=== PATIENT | female | born 1980 | race Caucasian/White ===

== ENCOUNTER → 2016-09-02 | Outpatient (CLI) | payer BC ==
[2016-09-02 12:10] LABS: Basophils % (A) 0 %; CHCM 33.8; Eosinophils % (A) 0 %; HDW 2.42; HGB 13.4 gm/dL (11.4-16.0); Luc # (Auto) 0.16; Luc % (Auto) 1; Lymphocytes % (A) 16 %; MCH 30.2 pg (25.0-35.0); MCHC 32.8 g/dL (31.0-37.0); MCV 92.2 fL (80.0-100.0); Mean Platelet Volume 7.1; Monocytes # (A) 0.4 k/uL (0-1.0); Monocytes % (A) 3 %; Neutrophils # (A) 10.1 k/uL (1.3-7.7); Neutrophils % (A) 79 %; RBC 4.44 m/uL (3.80-5.40); RDW 12.6 % (11.5-15.5); WBC 12.8 k/uL (3.8-10.6); WBC (Perox) 13.53
== END | disposition home or self-care (01) ==
LOC: LABPAT 11:21
PROVIDERS: ATTEND Orthopaedic Surgery
DX: Z01.812 Encounter for preprocedural laboratory examination (principal)
CPT/HCPCS: 85025

== ENCOUNTER 2016-09-25 07:36 | Day surgery (SDC) | payer BC ==
[2016-09-20 16:09] VITALS: BMI 23.1
--- NOTE | 2016-09-24 15:05 | HP ---
DATE OF ADMISSION: 09/25/2016 Maddy Ca is a 36-year-old patient seen with progressive left knee pain. After having treatment options discussed, she elected to proceed with left knee arthroscopy. Consent was obtained. Past medical history is asthma. Past surgical history is noncontributory. DAILY MEDICATIONS: None. Allergies are SULFA and DEMEROL. SOCIAL HISTORY: Patient denies tobacco use. Physical evaluation of the left knee: Range of motion is +1 to 130 degrees, tenderness along the medial joint line. Positive medial Niurka's. Ligaments are stable. Hip rotation without pain. Distal neurovascular exam intact. Radiographs of the left knee revealed moderate medial compartment osteoarthritis. An MRI of the left knee revealed medial meniscal tear. IMPRESSION: Internal derangement of the left knee with medial meniscal tear. PLAN: Left knee arthroscopy with partial meniscectomy and debridement.
[~2016-09-25 07:36] MED LIST: DEXAMETHASONE SOD PHOSPHATE 10 MG/ML 1 ML VIAL IV ONE; HYDROmorphone 1 MG/ML 1 ML SYRINGE IVP PRN; LACTATED RINGERS 1,000 ML IV SCH; LIDOCAINE 1% 20 ML VIAL (10MG/ML) FOR IV START INTRADERMA PRN; MIDAZOLAM 2 MG/2 ML VIAL IV PRN; ONDANSETRON 4 MG/2 ML VIAL IVP ONE; SCOPOLAMINE 1.5MG/72HR PATCH TRANSDERM ONE
[2016-09-25] MEDS ORDERED: KETOROLAC 30 MG/ML 1 ML VIAL ONE (08:38)
[2016-09-25] MEDS ORDERED: PROPOFOL 10 MG/ML 20 ML VIAL IV ONE (08:38)
[2016-09-25] MEDS ORDERED: LIDOCAINE 1% INJ 10MG/ML (20 ML MDV) ONE (08:38)
[2016-09-25] MEDS ORDERED: SUCCINYLCHOLINE CHLORIDE 100 MG/5 ML SYR IV ONE (08:38)
[2016-09-25] MEDS ORDERED: fentaNYL (PF) 50 MCG/ML 2 ML AMP ONE (08:38)
[2016-09-25] MEDS ORDERED: MIDAZOLAM 2 MG/2 ML VIAL ONE (08:38)
[2016-09-25] MEDS: ceFAZolin 1,000 MG in DEXTROSE/WATER 1 50ML.BAG IV ONE ×2 (08:43→08:45)
[2016-09-25] MEDS ORDERED: BUPIVACAIN-EPI 0.25%-1:200,000 30 ML VIAL INTRAARTIC ONE ×2 (08:45→09:10)
[2016-09-25 09:27] VITALS: TEMP 97.6
--- NOTE | 2016-09-25 09:40 | P.OP ---
Date of Procedure: 09/25/16 Preoperative Diagnosis: Internal derangement left knee Postoperative Diagnosis: 1. Tear medial meniscus left knee 2. Grade 2/3 chondromalacia medial femoral condyle left knee 3. Reactive synovitis medial and suprapatellar compartments left knee Procedure(s) Performed: 1. Arthroscopic partial medial meniscectomy left knee 2. Arthroscopic chondroplasty medial femoral condyle left knee 3. Arthroscopic partial synovectomy medial and suprapatellar compartments left knee Anesthesia: ALLEGRAA, local Surgeon: Marek Webb Estimated Blood Loss (ml): 10 Pathology: none sent Condition: stable Disposition: PACU Indications for Procedure: 36-year-old patient seen with progressive left knee pain. After having treatment options discussed, she elected to proceed with left knee arthroscopy. Operative Findings: See description of procedure Description of Procedure: Patient was taken to the operative suite. Patient underwent a general anesthetic by the department of anesthesia. Patient was given preoperative antibiotics. The left lower extremity was placed in a well-padded arthroscopic leg montoya. The left leg was prepped and draped in the normal sterile orthopedic fashion. A lateral parapatellar and suprapatellar incision was made. Trochars were inserted. Arthroscopy was initiated. Suprapatellar pouch revealed thick reactive synovitis. The patellofemoral joint appeared to articulate congruently. There mild grade 1 chondromalacia with no osteochondral tears. The scope was guided into the medial gutter. No loose bodies or plica were identified. The scope was then guided into the medial compartment. A medial parapatellar incision was made. Trocar inserted followed by probe. There was a complex tear involving the posterior horn medial meniscus. There was a area of grade 2/3 chondromalacia weightbearing surface medial femoral condyle with large osteochondral tears. There was thick reactive synovitis. A partial medial meniscectomy was performed on a stable tissue. I performed a chondroplasty of the medial femoral condyle down to stable tissue and partial synovectomy. The residual meniscus was probed and found stable. The residual osteochondral surface medial femoral condyle was stable. Scope and probe were then guided into the intercondylar notch. Cruciates were identified, probed and found to be stable. The scope and probe were then guided into lateral compartment. The lateral meniscus was stable the lateral femoral condyle and tibial plateau were stable. The lateral compartment was otherwise unremarkable. The scope was in guided back into the suprapatellar compartment. A motorized shaver was introduced into the supracompartment debriding out some piecemeal fragments of meniscus. I performed a partial synovectomy. Shaver was removed. I took one more look on the entire knee, no residual debris. Instruments were now removed from the joint. The joint was infiltrated with .25% Marcaine. Steri-Strips were applied to the portal sites. Sterile dressings were applied. The patient was placed into a BERENICE hose. No tourniquet was utilized. The patient was awakened, transferred to a bed and taken to recovery stable satisfactory condition.
[2016-09-25 10:58] VITALS: BP 105/66; PULSE 76; RESP 16
== END 2016-09-25 11:50 | disposition home or self-care (01) ==
LOC: OR 07:36
PROVIDERS: ATTEND Orthopaedic Surgery
DX: M23.222 Derangement of posterior horn of medial meniscus due to old tear or injury, left knee (principal); M94.262 Chondromalacia, left knee; M65.9 Synovitis and tenosynovitis, unspecified; J45.909 Unspecified asthma, uncomplicated; Z79.899 Other long term (current) drug therapy; Z88.5 Allergy status to narcotic agent; Z88.2 Allergy status to sulfonamides
CPT/HCPCS: 81025; 29881; J2250; J1100; J2405; J2001; J3010; J1885; J0690; J0330; J2704

== ENCOUNTER → 2017-01-16 | Outpatient (CLI) | payer BC ==
--- NOTE | 2017-01-16 09:34 | MR ---
EXAMINATION TYPE: MR knee RT wo con DATE OF EXAM: 01/16/2017 9:24 AM COMPARISON: NONE HISTORY: rt knee pain TECHNIQUE: Multiplanar, multiecho imaging of the right knee is performed without IV contrast. FINDINGS: There is only a small amount of joint fluid. There is a small amount of fluid in the gastro cnemius semimembranosus bursa. There is no significant chondromalacia. There is an oblique tear through the posterior horn and body horn junction of the medial meniscus. Th is communicates with the inferior articulating surface. The lateral meniscus is unremarkable. Both the anterior and the posterior cruciate ligaments are intact. The medial and the lateral collateral ligament complexes are intact. Iliotibial band inserts normally upon Gerdy's tubercle. The popliteus muscle and tendon are normal. Both the quadriceps and patellar tendons are normal. There is no significant swelling in the Hoffa fa t space. There is some varicosities in the medial aspect of the soft tissues of the knee. IMPRESSION: 1. OBLIQUE TEAR THROUGH THE POSTERIOR HORN AND BODY HORN JUNCTION OF THE MEDIAL MENISCUS. 2. SMALL AMOUNT OF FLUID IN THE GASTROCNEMIUS SEMIMEMBRANOSUS BURSA. 3. VARICOSITIES INVOLVING THE MEDIAL ASPECT OF THE SOFT TISSUES OF THE KNEE.
== END | disposition home or self-care (01) ==
LOC: RADMRIMAIN 08:50
PROVIDERS: ATTEND Orthopaedic Surgery
DX: S83.241A Other tear of medial meniscus, current injury, right knee, initial encounter (principal); I83.90 Asymptomatic varicose veins of unspecified lower extremity

== ENCOUNTER → 2017-03-20 | Outpatient (CLI) | payer BC | END | disposition home or self-care (01) | LOC: LABWHC1 15:07 | PROVIDERS: ATTEND Internal Medicine | DX: R06.02 Shortness of breath (principal); R07.89 Other chest pain | CPT/HCPCS: 36415; 85379 ==

== ENCOUNTER → 2020-08-18 | Outpatient (CLI) | payer OTHER ==
--- NOTE | 2020-08-18 13:08 | XR ---
EXAM TYPE: LUMBAR SPINE X RAY SERIES COMPARISON: NONE HISTORY: Pain TECHNIQUE: 3 views are submitted. FINDINGS: Alignment is anatomic. The pedicles are intact. The transverse processes are intact. There is no s pondylolisthesis. IMPRESSION: 1. No acute process. If there is concern for disc herniation consider MRI.
== END | disposition home or self-care (01) ==
LOC: RADXRMAIN 12:06
PROVIDERS: ATTEND Emergency Medicine
DX: S39.012A Strain of muscle, fascia and tendon of lower back, initial encounter (principal); R20.9 Unspecified disturbances of skin sensation
CPT/HCPCS: 72100

== ENCOUNTER 2022-07-27 14:14 | Emergency (ER) | payer BC, OTHER ==
[2022-07-27 14:34] VITALS: TEMP 97.8
[2022-07-27] MEDS ORDERED: SODIUM CHLORIDE 0.9% 1,000 ML IV STA (15:07)
[2022-07-27] MEDS ORDERED: KETOROLAC 15 MG/ML 1 ML VIAL IVP STA (15:07)
[2022-07-27] MEDS ORDERED: MORPHINE SULFATE 2 MG/ML SYRINGE IVP STA (15:07)
[2022-07-27] MEDS ORDERED: FAMOTIDINE 20 MG/2 ML VIAL IV STA (15:08)
--- NOTE | 2022-07-27 15:13 | ED ---
Abdominal Pain HPI - General Chief Complaint: Abdominal Pain Stated Complaint: pain Time Seen by Provider: 07/27/22 14:56 Source: patient, RN notes reviewed Mode of arrival: ambulatory Limitations: no limitations - History of Present Illness Initial Comments: This is a 42-year-old female who presents to the emergency department for left upper quadrant pain. States that it has been present for approximately 2 weeks. She initially had had blood work done revealing a slightly elevated white blood cell count and also had a computed tomography scan of the abdomen and pelvis revealing no acute irregularities. Pain continued to worsen, and she followed up with her primary care provider last week. She was given a dose of steroids and started on Lyrica for possible internal shingles. Patient states that symptoms have improved slightly, but are still very bothersome. She has little to no appetite and is refusing to eat. She has a history of pancreatitis and kidney stones, however symptoms do not feel the same. Also notes that the pain radiates into her back and up the shoulder. Denies any chest pain or shortness of breath. Denies any fevers, chills, sore throat, cough, dyspnea, chest pain, palpitations, vomiting, diarrhea, back pain, or headaches. MD Complaint: abdominal pain Onset/Timin -: week(s) Location: LUQ Radiation: back Associated Symptoms: nausea - Related Data Home Medications Medication Instructions Recorded Confirmed Amoxic-Pot Clav 875-125Mg 1 tab PO Q12HR 07/27/22 07/27/22 [Augmentin 875-125] Pregabalin [Lyrica] 75 mg PO BID 07/27/22 07/27/22 Previous Rx's Medication Instructions Recorded HYDROcodone/APAP 5-325MG [[place] 1 tab PO Q6HR PRN 3 Days #12 tab 07/27/22 5-325] Hyoscyamine Sulfate [Levsin] 0.125 mg PO Q4H PRN #20 tab 07/27/22 Ondansetron Odt [Zofran Odt] 4 mg PO Q8HR PRN #15 tab 07/27/22 Pantoprazole [Protonix] 40 mg PO DAILY #10 tab 07/27/22 Sucralfate [Carafate] 1 gm PO QID #20 tablet 07/27/22 Allergies Allergy/AdvReac Type Severity Reaction Status Date / Time meperidine [From Demerol] Allergy Rash/Hives Verified 07/27/22 17:14 Sulfa (Sulfonamide Allergy Anaphylaxis Verified 07/27/22 17:14 Antibiotics) Review of Systems ROS Statement: Those systems with pertinent positive or pertinent negative responses have been documented in the HPI. ROS Other: All systems not noted in ROS Statement are negative. Past Medical History Past Medical History: Asthma Additional Past Medical History / Comment(s): pancreatitis History of Any Multi-Drug Resistant Organisms: None Reported Past Surgical History: Back Surgery, Orthopedic Surgery Additional Past Surgical History / Comment(s): back 2020, knee surgery Past Psychological History: No Psychological Hx Reported Smoking Status: Never smoker Past Alcohol Use History: Occasional Past Drug Use History: None Reported General Exam Limitations: no limitations General appearance: alert, in no apparent distress Head exam: Present: atraumatic, normocephalic, normal inspection Respiratory exam: Present: normal lung sounds bilaterally. Absent: respiratory distress, wheezes, rales, rhonchi, stridor Cardiovascular Exam: Present: regular rate, normal rhythm, normal heart sounds. Absent: systolic murmur, diastolic murmur, rubs, gallop, clicks GI/Abdominal exam: Present: soft, tenderness (LUQ), normal bowel sounds. Absent: distended Neurological exam: Present: alert, oriented X3, CN II-XII intact Psychiatric exam: Present: normal affect, normal mood Skin exam: Present: warm, dry, intact, normal color. Absent: rash Course Vital Signs 07/27/22 07/27/22 14:29 19:35 Temperature 97.8 F Pulse Rate 89 68 Respiratory 18 16 Rate Blood Pressure 165/54 95/57 O2 Sat by Pulse 100 100 Oximetry Medical Decision Making - Medical Decision Making This is a 42-year-old female who presents to the emergency department for abdominal pain. Was pt. sent in by a medical professional or institution? @ -No Did you speak to anyone other than the patient for history? @ -Her Did you review nursing and triage notes? @ -Yes, and I agree, it is accurate with regards to the patient's symptoms. Were old charts reviewed? @ -No Differential Diagnosis? @ -Differential Abdominal Pain Women: Appendicitis, Cholecystitis, diverticulosis, ischemic bowel, pancreatitis, hepatitis, UTI, gastroenteritis, AAA, incarcerated hernia, bowel obstruction, constipation, inflammatory bowel, hepatitis, peptic ulcer disease, splenic infarction, perforated viscus, vulvitis, ovarian torsion, PID, kidney stone, placenta abruption, this is not meant to be an all-inclusive list EKG interpreted by me (3pts min.)? @ -Sinus rhythm. Ventricular rate 71 bpm, NC interval 159 ms, QRS duration 116 ms, QTC [address] interpreted by me (1pt min.)? @ -Computed tomography scan of the abdomen and pelvis obtained. My interpretation identifies no bowel wall thickening, ureteral calculus, or nephrolithiasis. What testing was considered but not performed? (CT, X-rays, U/S, labs)? Why? @ -None What meds were considered but not given? Why? @ -None Did you discuss the management of the patient with other professionals? @ -No Did you reconcile home meds? @ -No Was smoking cessation discussed for >3mins.? @ -No Was critical care preformed (if so, how long)? @ -No Were there social determinants of health that impacted care today? How? (Homelessness, low income, unemployed, alcoholism, drug addiction, transportation, low edu. Level, literacy, decrease access to med. care, alf, rehab)? @ -No Was there de-escalation of care discussed even if they declined? (Discuss DNR or withdrawal of care, Hospice)? @ -No What co-morbidities impacted this encounter? (DM, HTN, Smoking, COPD, CAD, Cancer, CVA, Hep., AIDS, mental health diagnosis, sleep apnea, morbid obesity)? @ -None Was patient admitted / discharged? @ -Discharged. Lab work obtained and found to be nonactionable. Computed tomography scan of the abdomen and pelvis obtained revealing no acute findings. Urinalysis does reveal a small amount of blood. Findings discussed with the patient in that she may have recently passed a kidney stone. She was given IV fluids, Zofran, and Toradol. She had initial symptomatic improvement, however symptoms then returned a couple of hours later. She declined any narcotic pain medication. She was subsequently given Ofirmev. However, the Ofirmev again did not improve symptoms. Upon further questioning when evaluating the patient, the other possibility is a peptic ulcer as she does note some burning sensations to the LUQ region. She does have a history of recurrent NSAID use due to migraines. Will treat her as if she has a peptic ulcer. Prescription for Carafate, Levsin, and Protonix provided with dosing instructions reviewed. She was also given a prescription for Zofran for any additional nausea as well as a 3 day course of [place] for any intractable pain. She is advised to avoid ibuprofen for the meantime due to this possibility and to otherwise take Tylenol. Instructed her to take the [place] sparingly when her pain is the most severe. She was given information for follow-up with gastroenterology, advised she contact them for an appointment. Undiagnosed new problem with uncertain prognosis? @ -LUQ pain Drug Therapy requiring intensive monitoring for toxicity (Heparin, Nitro, Insulin, Cardizem)? @ -None Were any procedures done? @ -None Diagnosis/symptom? @ -LUQ pain Acute, or Chronic, or Acute on Chronic? @ -Acute Uncomplicated (without systemic symptoms) or Complicated (systemic symptoms)? @ -Complicated Side effects of treatment? @ -None Exacerbation, Progression, or Severe Exacerbation] @ -Not applicable Poses a threat to life or bodily function? @ -Yes Return precautions reviewed in depth, the patient is instructed to return to the emergency department with any new, worsening, or concerning symptoms. Patient verbalized understanding. This case was discussed in detail with the attending ED physician, Dr. Cabrera. Presentation, findings, and treatment plan discussed in detail as well. - Lab Data Result diagrams: 07/27/22 15:30 07/27/22 15:30 Lab Results 07/27/22 07/27/22 07/27/22 Range/Units 14:37 14:37 15:30 WBC 7.0 (3.8-10.6) k/uL RBC 4.37 (3.80-5.40) m/uL Hgb 13.2 (11.4-16.0) gm/dL Hct 38.5 (34.0-46.0) % MCV 88.1 (80.0-100.0) fL MCH 30.2 (25.0-35.0) pg MCHC 34.3 (31.0-37.0) g/dL RDW 12.7 (11.5-15.5) % Plt Count 195 (150-450) k/uL MPV 8.2 Neutrophils % 60 % Lymphocytes % 33 % Monocytes % 4 % Eosinophils % 0 % Basophils % 0 % Neutrophils # 4.2 (1.3-7.7) k/uL Lymphocytes # 2.3 (1.0-4.8) k/uL Monocytes # 0.3 (0-1.0) k/uL Eosinophils # 0.0 (0-0.7) k/uL Basophils # 0.0 (0-0.2) k/uL PT (9.0-12.0) sec INR (<1.2) APTT (22.0-30.0) sec D-Dimer (<0.60) mg/L FEU Sodium (137-145) mmol/L Potassium (3.5-5.1) mmol/L Chloride (98-107) mmol/L Carbon Dioxide (22-30) mmol/L Anion Gap mmol/L BUN (7-17) mg/dL Creatinine (0.52-1.04) mg/dL Est GFR (CKD-EPI)AfAm (>60 ml/min/1.73 sqM) Est GFR (CKD-EPI)NonAf (>60 ml/min/1.73 sqM) Glucose (74-99) mg/dL Plasma Lactic Acid [place] (0.7-2.0) mmol/L Calcium (8.4-10.2) mg/dL Total Bilirubin (0.2-1.3) mg/dL AST (14-36) U/L ALT (4-34) U/L Alkaline Phosphatase (38-126) U/L Troponin I (0.000-0.034) ng/mL C-Reactive Protein (<1.0) mg/dL Total Protein (6.3-8.2) g/dL Albumin (3.5-5.0) g/dL Amylase (30-110) U/L Lipase (23-300) U/L Urine Color Colorless Urine Appearance Clear (Clear) Urine pH 6.0 (5.0-8.0) Ur Specific [place] 1.002 (1.001-1.035) Urine Protein Negative (Negative) Urine Glucose (UA) Negative (Negative) Urine Ketones Negative (Negative) Urine Blood Small H (Negative) Urine Nitrite Negative (Negative) Urine Bilirubin Negative (Negative) Urine Urobilinogen <2.0 (<2.0) mg/dL Ur Leukocyte Esterase Negative (Negative) Urine RBC 6 H (0-5) /hpf Urine WBC 3 (0-5) /hpf Ur Squamous Epith Cells 3 (0-4) /hpf Urine Bacteria Occasional H (None) /hpf Urine Mucus Rare H (None) /hpf Urine HCG, Qual Not Detected (Not Detectd) 07/27/22 07/27/22 07/27/22 Range/Units 15:30 15:30 15:30 WBC (3.8-10.6) k/uL RBC (3.80-5.40) m/uL Hgb (11.4-16.0) gm/dL Hct (34.0-46.0) % MCV (80.0-100.0) fL MCH (25.0-35.0) pg MCHC (31.0-37.0) g/dL RDW (11.5-15.5) % Plt Count (150-450) k/uL MPV Neutrophils % % Lymphocytes % % Monocytes % % Eosinophils % % Basophils % % Neutrophils # (1.3-7.7) k/uL Lymphocytes # (1.0-4.8) k/uL Monocytes # (0-1.0) k/uL Eosinophils # (0-0.7) k/uL Basophils # (0-0.2) k/uL PT 11.9 (9.0-12.0) sec INR 1.2 H (<1.2) APTT 26.8 (22.0-30.0) sec D-Dimer 0.43 (<0.60) mg/L FEU Sodium 138 (137-145) mmol/L Potassium 3.6 (3.5-5.1) mmol/L Chloride 107 (98-107) mmol/L Carbon Dioxide 22 (22-30) mmol/L Anion Gap 9 mmol/L BUN 7 (7-17) mg/dL Creatinine 0.62 (0.52-1.04) mg/dL Est GFR (CKD-EPI)AfAm >90 (>60 ml/min/1.73 sqM) Est GFR (CKD-EPI)NonAf >90 (>60 ml/min/1.73 sqM) Glucose 83 (74-99) mg/dL Plasma Lactic Acid [place] 1.0 (0.7-2.0) mmol/L Calcium 9.0 (8.4-10.2) mg/dL Total Bilirubin 1.2 (0.2-1.3) mg/dL AST 19 (14-36) U/L ALT 13 (4-34) U/L Alkaline Phosphatase 57 (38-126) U/L Troponin I (0.000-0.034) ng/mL C-Reactive Protein <0.5 (<1.0) mg/dL Total Protein 7.4 (6.3-8.2) g/dL Albumin 4.5 (3.5-5.0) g/dL Amylase 71 (30-110) U/L Lipase 229 (23-300) U/L Urine Color Urine Appearance (Clear) Urine pH (5.0-8.0) Ur Specific [place] (1.001-1.035) Urine Protein (Negative) Urine Glucose (UA) (Negative) Urine Ketones (Negative) Urine Blood (Negative) Urine Nitrite (Negative) Urine Bilirubin (Negative) Urine Urobilinogen (<2.0) mg/dL Ur Leukocyte Esterase (Negative) Urine RBC (0-5) /hpf Urine WBC (0-5) /hpf Ur Squamous Epith Cells (0-4) /hpf Urine Bacteria (None) /hpf Urine Mucus (None) /hpf Urine HCG, Qual (Not Detectd) 07/27/22 Range/Units 15:30 WBC (3.8-10.6) k/uL RBC (3.80-5.40) m/uL Hgb (11.4-16.0) gm/dL Hct (34.0-46.0) % MCV (80.0-100.0) fL MCH (25.0-35.0) pg MCHC (31.0-37.0) g/dL RDW (11.5-15.5) % Plt Count (150-450) k/uL MPV Neutrophils % % Lymphocytes % % Monocytes % % Eosinophils % % Basophils % % Neutrophils # (1.3-7.7) k/uL Lymphocytes # (1.0-4.8) k/uL Monocytes # (0-1.0) k/uL Eosinophils # (0-0.7) k/uL Basophils # (0-0.2) k/uL PT (9.0-12.0) sec INR (<1.2) APTT (22.0-30.0) sec D-Dimer (<0.60) mg/L FEU Sodium (137-145) mmol/L Potassium (3.5-5.1) mmol/L Chloride (98-107) mmol/L Carbon Dioxide (22-30) mmol/L Anion Gap mmol/L BUN (7-17) mg/dL Creatinine (0.52-1.04) mg/dL Est GFR (CKD-EPI)AfAm (>60 ml/min/1.73 sqM) Est GFR (CKD-EPI)NonAf (>60 ml/min/1.73 sqM) Glucose (74-99) mg/dL Plasma Lactic Acid [place] (0.7-2.0) mmol/L Calcium (8.4-10.2) mg/dL Total Bilirubin (0.2-1.3) mg/dL AST (14-36) U/L ALT (4-34) U/L Alkaline Phosphatase (38-126) U/L Troponin I <0.012 (0.000-0.034) ng/mL C-Reactive Protein (<1.0) mg/dL Total Protein (6.3-8.2) g/dL Albumin (3.5-5.0) g/dL Amylase (30-110) U/L Lipase (23-300) U/L Urine Color Urine Appearance (Clear) Urine pH (5.0-8.0) Ur Specific [place] (1.001-1.035) Urine Protein (Negative) Urine Glucose (UA) (Negative) Urine Ketones (Negative) Urine Blood (Negative) Urine Nitrite (Negative) Urine Bilirubin (Negative) Urine Urobilinogen (<2.0) mg/dL Ur Leukocyte Esterase (Negative) Urine RBC (0-5) /hpf Urine WBC (0-5) /hpf Ur Squamous Epith Cells (0-4) /hpf Urine Bacteria (None) /hpf Urine Mucus (None) /hpf Urine HCG, Qual (Not Detectd) - Radiology Data Radiology results: report reviewed, image reviewed Disposition Clinical Impression: LUQ pain Disposition: HOME SELF-CARE Instructions (If sedation given, give patient instructions): Peptic Ulcer (ED), Gastritis (ED), Diet for Stomach Ulcers and Gastritis (ED), Abdominal Pain (ED) Additional Instructions: Return to the emergency department with any new, worsening, or concerning symptoms. Begin taking the Carafate 4 times daily and the Protonix once daily. The Protonix should be taken 30-60 minutes before eating or taking other medication. The Levsin can be used as needed for abdominal pain, up to every 4 hours. Take the [place] sparingly when your pain is the most severe, and be aware that it may be sedating and you should avoid driving or operating machinery when taking this. You can take the Zofran up to every 8 hours as needed for nausea and vomiting. Slowly advance your diet as tolerated. Follow up with your primary care provider in 1-2 days. Contact the thread inspector as listed below for a follow up appointment. Prescriptions: Sucralfate [Carafate] 1 gm PO QID #20 tablet Hyoscyamine Sulfate [Levsin] 0.125 mg PO Q4H PRN #20 tab PRN Reason: Pain HYDROcodone/APAP 5-325MG [[place] 5-325] 1 tab PO Q6HR PRN 3 Days #12 tab PRN Reason: Pain Pantoprazole [Protonix] 40 mg PO DAILY #10 tab Ondansetron Odt [Zofran Odt] 4 mg PO Q8HR PRN #15 tab PRN Reason: Nausea And Vomiting Is patient prescribed a controlled substance at d/c from ED?: Yes When asked, does pt state using other controlled substances?: Yes If prescribed controlled substance>3 days was MAPS reviewed?: Prescribed <3 Days Referrals: Hermes Cabral MD [Primary Care Provider] - 1-2 days Samira Amaral MD [STAFF PHYSICIAN] - 1-2 days
[2022-07-27 15:45] LABS: Basophils % (A) 0 %; Eosinophils % (A) 0 %; HCT 38.5 % (34.0-46.0); HGB 13.2 gm/dL (11.4-16.0); Lymphocytes # (A) 2.3 k/uL (1.0-4.8); Lymphocytes % (A) 33 %; MCH 30.2 pg (25.0-35.0); MCHC 34.3 g/dL (31.0-37.0); MCV 88.1 fL (80.0-100.0); Mean Platelet Volume 8.2; Monocytes # (A) 0.3 k/uL (0-1.0); Monocytes % (A) 4 %; Neutrophils # (A) 4.2 k/uL (1.3-7.7); Neutrophils % (A) 60 %; Platelet Count 195 k/uL (150-450); RBC 4.37 m/uL (3.80-5.40); RDW 12.7 % (11.5-15.5)
[2022-07-27 15:49] LABS: Appearance,Urine Clear (Clear); Bacteria,Urine Occasional /hpf; Bilirubin,Urine Negative (Negative); Blood,Urine Small (Negative); Color,Urine Colorless; Glucose,Urine (UA) Negative (Negative); Ketones,Urine Negative (Negative); Leukocyte Esterase,Urine Negative (Negative); Mucus,Urine Rare /hpf; Nitrite,Urine Negative (Negative); Protein,Urine Negative (Negative); RBC,Urine 6 /hpf (0-5); Specific Gravity,Urine 1.002 (1.001-1.035); Squamous Epithelial Cell,Urine 3 /hpf (0-4); Urobilinogen,Urine <2.0 mg/dL (<2.0); WBC,Urine 3 /hpf (0-5)
[2022-07-27 15:57] LABS: ALT 13 U/L (4-34); AST 19 U/L (14-36); African American GFR (CKD) >90 (>60 ml/min/1.73 sqM); Albumin 4.5 g/dL (3.5-5.0); Alkaline Phosphatase 57 U/L (38-126); Amylase 71 U/L (30-110); Anion Gap 9 mmol/L; Blood Urea Nitrogen 7 mg/dL (7-17); C Reactive Protein <0.5 mg/dL (<1.0); Carbon Dioxide 22 mmol/L (22-30); Chloride 107 mmol/L (98-107); Glucose 83 mg/dL (74-99); Lipase 229 U/L (23-300); Non-African American GFR(CKD) >90 (>60 ml/min/1.73 sqM); Potassium 3.6 mmol/L (3.5-5.1); Sodium 138 mmol/L (137-145); Total Bilirubin 1.2 mg/dL (0.2-1.3); Total Protein 7.4 g/dL (6.3-8.2)
[2022-07-27 16:07] LABS: INR 1.2 (<1.2); Partial Thromboplastin Time 26.8 sec (22.0-30.0); Prothrombin Time 11.9 sec (9.0-12.0)
[2022-07-27] MEDS ORDERED: ACETAMINOPHEN IV (For NPO) 1,000 MG in EMPTY BAG 1 BAG IVPB STA (17:19)
--- NOTE | 2022-07-27 17:23 | CT ---
EXAMINATION TYPE: CT abdomen pelvis w con CT DLP: 615.8 mGycm, Automated exposure control for dose reduction was used. DATE OF EXAM: 07/27/2022 4:44 PM COMPARISON: None CLINICAL INDICATION:Female, 42 years old with history of LUQ pain; LUQ pain TECHNIQUE: Axial CT of the abdomen and pelvis. Sagittal and coronal reformats were created on a [employer] workstation. Contrast used:100ml mL of Isovue 300 with IV Contrast, Oral contrast used: without Oral Contrast FINDINGS: LOWER CHEST: Unremarkable ABDOMEN LIVER: Unremarkable GALLBLADDER AND BILE DUCTS: Unremarkable. PANCREAS: Unremarkable. SPLEEN: Unremarkable. ADRENAL GLANDS: Unremarkable. KIDNEYS AND URETERS: No evidence of hydronephrosis or renal calculus. The ureters are unremarkable. PELVIS BLADDER: Unremarkable REPRODUCTIVE: Unremarkable. ABDOMEN & PELVIS STOMACH AND BOWEL: Stomach and duodenum are unremarkable. Scattered diverticula are noted throughout the colon. No evidence of bowel obstruction. Appendix is normal in appearance. PERITONEUM: No evidence of pneumoperitoneum or free fluid. VASCULATURE: No evidence of aortic aneurysm. MUSCULOSKELETAL: No acute osseous abnormalities LYMPH NODES: No gross evidence for lymphadenopathy. SOFT TISSUE/ABDOMINAL WALL: Unremarkable IMPRESSION: 1. No acute intra-abdominal or intrapelvic process. 2. Colonic diverticulosis without evidence for diverticulitis.
[2022-07-27] MEDS ORDERED: HYDROcodone/APAP 5-325MG 1 EACH TAB PO STA (18:11)
[2022-07-27 19:37] VITALS: BP 95/57; PULSE 68; RESP 16
== END 2022-07-27 19:39 | disposition home or self-care (01) ==
LOC: EC 14:14
DX: R10.12 Left upper quadrant pain (principal); J45.909 Unspecified asthma, uncomplicated; Z88.2 Allergy status to sulfonamides; Z88.5 Allergy status to narcotic agent
CPT/HCPCS: 36415; 93005; 85379; 80053; 82150; 83605; 83690; 84484; 85025; 85610; 85730; 86140; 81001; 81025; 74177; 99285; 96374; 96375; 96361; J0131; J1885; Q9967

== ENCOUNTER → 2023-11-13 | Outpatient (CLI) | payer BC ==
[2023-11-13 17:19] LABS: INR 0.9 (<1.2); Partial Thromboplastin Time 26.7 sec (22.0-30.0); Prothrombin Time 10.3 sec (10.0-12.5)
[2023-11-14 03:17] LABS: Basophils # (A) 0.04 X 10*3/uL (0.00-0.10); Basophils % (A) 0.5 %; Eosinophils # (A) 0.05 X 10*3/uL (0.04-0.35); Eosinophils % (A) 0.6 %; HCT 38.4 % (37.2-46.3); HGB 12.7 g/dL (12.0-15.0); Lymphocytes # (A) 2.83 X 10*3/uL (0.90-5.00); Lymphocytes % (A) 36.1 %; MCH 30.5 pg (27.0-32.0); MCHC 33.1 g/dL (32.0-37.0); MCV 92.1 FL (80.0-97.0); Mean Platelet Volume 10.9 FL (9.5-12.2); Monocytes % (A) 6.4 %; NRBC Per 100 WBC 0 X 10*3/uL (0.00-0.01); Platelet Count 243 X 10*3/uL (140-440); RBC 4.17 X 10*6/uL (4.10-5.20); RDW 13.2 % (11.5-14.5); WBC 7.85 X 10*3/uL (4.50-10.00)
[2023-11-14 03:22] LABS: ALT 17 U/L (8-44); AST 23 U/L (13-35); Albumin 4.9 g/dL (3.8-4.9); Albumin/Globulin Ratio 1.88 Ratio (1.60-3.17); Alkaline Phosphatase 68 U/L (41-126); BUN/Creat Ratio 12.86 Ratio (12.00-20.00); Calcium 9.5 mg/dL (8.7-10.3); Carbon Dioxide 25.1 mmol/L (21.6-31.8); Chloride 102 mmol/L (96-109); Globulin 2.6 g/dL (1.6-3.3); Glucose 92 mg/dL (70-110); Potassium 4.2 mmol/L (3.5-5.5); Sodium 139 mmol/L (135-145); Total Bilirubin 0.4 mg/dL (0.3-1.2); Total Protein 7.5 g/dL (6.2-8.2)
[2023-11-14 04:20] LABS: Appearance,Urine Cloudy (Clear); Bilirubin,Urine Negative (Negative); Blood,Urine Negative (Negative); Color,Urine Yellow (Yellow); Ketones,Urine Negative (Negative); Nitrite,Urine Negative (Negative); PH, Urine 6.5; Specific Gravity,Urine 1.006 (1.001-1.030); Urobilinogen,Urine 0.2 E.U./DL
[2023-11-14 04:40] LABS: Bacteria,Urine 2+ (None Seen)
== END | disposition home or self-care (01) ==
LOC: LABWHC1 15:55
PROVIDERS: ATTEND Family Medicine
DX: Z01.812 Encounter for preprocedural laboratory examination (principal); M51.16 Intervertebral disc disorders with radiculopathy, lumbar region; M43.16 Spondylolisthesis, lumbar region
CPT/HCPCS: 36415; 80053; 81001; 83036; 85025; 85610; 85730; 86850; 86900; 86901; 87070

== ENCOUNTER → 2024-01-21 | Outpatient (CLI) | payer BC ==
--- NOTE | 2024-01-21 16:01 | XR ---
EXAMINATION TYPE: XR lumbar spine with bend/flex DATE OF EXAM: 01/21/2024 3:32 PM CLINICAL INDICATION:Female, 43 years old with history of M43.16 SPONDYLOLISTHESIS, LUMBAR REGION; [facility] COMPARISON: 08/18/2020 TECHNIQUE: XR lumbar spine with bend/flex - Frontal, lateral and coned in L5-S1 lateral views of the spine. Bending and flexion views were also obtained. FINDINGS: Discectomy L5-S1 No evidence of any acute osseous pathology. No evidence of loss of verteb ral body height is seen. There is normal alignment of the lumbar vertebral bodies. Scattered disc spa ce narrowing. Multilevel marginal osteophyte formation throughout the visualized spine. There is face t joint arthropathy throughout the spine. Scattered at least mild neural foraminal stenosis at L5-S1. No abnormal enhancement pending flexion views. IMPRESSION: 1. No acute fracture. 2. Mild multilevel disc degeneration.
== END | disposition home or self-care (01) ==
LOC: RADXRMAIN 14:59
PROVIDERS: ATTEND Neurological Surgery
DX: M43.16 Spondylolisthesis, lumbar region (principal); M51.36 Other intervertebral disc degeneration, lumbar region
CPT/HCPCS: 72114

== ENCOUNTER → 2024-03-12 | Outpatient (CLI) | payer BC ==
--- NOTE | 2024-03-13 08:30 | MR ---
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 IV Contrast: cc . (None if empty) FINDINGS: Alignment: The lumbar vertebral bodies have preserved heights and alignment. Cord: The conus medullaris and the distal spinal cord appear unremarkable with regards to their signa l intensity and morphology. Bones/Discs: Mild degeneration changes throughout the spine with osteophyte formation and facet joint arthropathy. Intervertebral disc signal is maintained. No abnormal inversion recovery signal to sugg est bony edema. Postsurgical changes at L5-S1. T12-L1: No evidence of significant spinal canal stenosis or neural foraminal stenosis. L1-L2: No evidence of significant spinal canal stenosis or neural foraminal stenosis. L2-L3: No evidence of significant spinal canal stenosis or neural foraminal stenosis. L3-L4: No evidence of significant spinal canal stenosis or neural foraminal stenosis. L4-L5: Disc bulge with central disc tiny protrusion. No significant spinal canal stenosis. Moderate b ilateral neural foraminal stenosis. L5-S1: Postsurgical changes susceptibility artifact limits evaluation. No significant disc pathology. The neural foramen are mild to moderately narrowed. No significant spinal canal or neural foraminal stenosis in the remainder of the visualized levels. Other findings: None. IMPRESSION: 1. No definitive evidence of significant spinal canal stenosis. 2. L4-L5 disc bulge with tiny protrusion. No significant spinal canal or neural foraminal stenosis.
== END | disposition home or self-care (01) ==
LOC: RADMRIMAIN 16:20
PROVIDERS: ATTEND Neurological Surgery
DX: M51.16 Intervertebral disc disorders with radiculopathy, lumbar region
CPT/HCPCS: 72148